=== PATIENT | female | born 1975 | race Two or more races ===

== ENCOUNTER 2021-06-27 09:00 | Outpatient (CLI) | payer OTHER | END 2021-06-27 09:07 | disposition home or self-care (01) | LOC: LAB 09:00 | DX: D64.89 Other specified anemias (principal); N39.0 Urinary tract infection, site not specified; I10 Essential (primary) hypertension; E11.9 Type 2 diabetes mellitus without complications; E05.90 Thyrotoxicosis, unspecified without thyrotoxic crisis or storm; M13.80 Other specified arthritis, unspecified site; Z77.21 Contact with and (suspected) exposure to potentially hazardous body fluids; E55.9 Vitamin D deficiency, unspecified; K92.1 Melena; E78.89 Other lipoprotein metabolism disorders ==

== ENCOUNTER → 2021-07-04 10:10 | Outpatient (CLI) | payer OTHER | END | disposition home or self-care (01) | LOC: LAB 10:10 | DX: D64.89 Other specified anemias (principal); I10 Essential (primary) hypertension; E11.9 Type 2 diabetes mellitus without complications; E05.90 Thyrotoxicosis, unspecified without thyrotoxic crisis or storm; M13.88 Other specified arthritis, other site; E55.9 Vitamin D deficiency, unspecified; K92.1 Melena; R78.89 Finding of other specified substances, not normally found in blood ==

== ENCOUNTER 2021-08-08 10:48 | Outpatient (CLI) | payer OTHER | END 2021-08-08 15:00 | disposition home or self-care (01) | LOC: LAB 10:48 | PROVIDERS: ATTEND General Practice | DX: N39.0 Urinary tract infection, site not specified (principal); R30.0 Dysuria ==

== ENCOUNTER 2022-02-13 09:14 | Outpatient (CLI) | payer OTHER | END 2022-02-13 09:20 | disposition home or self-care (01) | LOC: RAD 09:14 | DX: M99.01 Segmental and somatic dysfunction of cervical region (principal); M99.02 Segmental and somatic dysfunction of thoracic region; M99.03 Segmental and somatic dysfunction of lumbar region; M25.561 Pain in right knee; M25.562 Pain in left knee; M79.671 Pain in right foot ==

== ENCOUNTER 2022-02-20 11:18 | Emergency (ER) | payer OTHER ==
[~2022-02-20] VITALS: Ht 165.1 cm; Wt 66.7 kg
[2022-02-20] MEDS ORDERED: ZYRTEC10 M3 PO (11:38)
== END 2022-02-20 15:49 | disposition home or self-care (01) ==
LOC: ER 11:18
DX: U07.1 COVID-19 (principal); A49.3 Mycoplasma infection, unspecified site

== ENCOUNTER 2022-08-20 09:33 | Outpatient (CLI) | payer OTHER ==
[~2022-08-20 09:33] MED LIST: ZYRTEC10 M3 PO
== END 2022-08-20 23:00 | disposition home or self-care (01) ==
LOC: LAB 09:33
DX: D64.9 Anemia, unspecified (principal); N39.0 Urinary tract infection, site not specified; I10 Essential (primary) hypertension; E11.9 Type 2 diabetes mellitus without complications; E05.90 Thyrotoxicosis, unspecified without thyrotoxic crisis or storm; M13.80 Other specified arthritis, unspecified site; Z77.21 Contact with and (suspected) exposure to potentially hazardous body fluids; K92.1 Melena; E55.9 Vitamin D deficiency, unspecified; E78.2 Mixed hyperlipidemia; Z11.59 Encounter for screening for other viral diseases

== ENCOUNTER 2022-08-21 08:18 | Outpatient (CLI) | payer OTHER | END 2022-08-21 08:19 | disposition home or self-care (01) | LOC: LAB 08:18 | DX: D64.9 Anemia, unspecified (principal); N39.0 Urinary tract infection, site not specified; I10 Essential (primary) hypertension; E11.9 Type 2 diabetes mellitus without complications; E05.90 Thyrotoxicosis, unspecified without thyrotoxic crisis or storm; M13.80 Other specified arthritis, unspecified site; Z77.21 Contact with and (suspected) exposure to potentially hazardous body fluids; K92.1 Melena; E55.9 Vitamin D deficiency, unspecified; E78.2 Mixed hyperlipidemia; Z11.59 Encounter for screening for other viral diseases ==

== ENCOUNTER 2022-10-09 07:54 | Outpatient (CLI) | payer OTHER | END 2022-10-09 07:59 | disposition home or self-care (01) | LOC: LAB 07:54 | DX: N39.0 Urinary tract infection, site not specified (principal) ==

== ENCOUNTER → 2022-12-15 | Outpatient (CLI) | payer OTHER | END | disposition home or self-care (01) | LOC: MAMO-SONO 09:56 | DX: Z12.31 Encounter for screening mammogram for malignant neoplasm of breast (principal) ==

== ENCOUNTER 2023-04-11 11:37 | Outpatient (CLI) | payer OTHER | END 2023-04-11 11:41 | disposition home or self-care (01) | LOC: SONOGRAMA 11:37 | PROVIDERS: ATTEND Obstetrics & Gynecology Maternal & Fetal Medicine | DX: N60.19 Diffuse cystic mastopathy of unspecified breast (principal); N63.0 Unspecified lump in unspecified breast; N60.11 Diffuse cystic mastopathy of right breast ==

== ENCOUNTER 2023-07-02 07:17 | Outpatient (CLI) | payer OTHER ==
[2023-07-02 08:39] LABS: URINE APPEARANCE Clear; URINE BILIRRUBIN Negative (NEGATIVE); URINE BLOOD Negative; URINE COLOR Yellow; URINE GLUCOSE Negative (NEGATIVE); URINE LEUKOCYTE Small; URINE NITRATE Negative; URINE PROTEIN Negative (NEGATIVE); URINE UROBILINOGEN 0.2 E.U./dl
[2023-07-02 08:41] LABS: URINE BACTERIA 3053.8 uL (0.0-1933); URINE EPITHELIAL CELLS 67.8 uL (0.0-38.8); URINE RBC 8.7 uL (0.0-20.8)
[2023-07-02 08:49] LABS: HEMATOCRIT 35.4 % (36.0-45.00); HEMOGLOBIN 12.1 g/dL (12.0-15.00); MEAN CELL VOLUME 96.8 fL (80.00-100.00); MEAN CORPUSCULAR HEMOGLOBIN 33.2 pg (27.00-32.0); MEAN CORPUSCULAR HGB CONC 34.2 g/dl (32.0-36.0); PLATELET COUNT 262 K/uL (150-450); RED BLOOD COUNT 3.66 M/uL (4.00-6.00)
[2023-07-02 08:57] LABS: ERYTHROCYTE SEDIMENTATION RATE 3 mm/hr
[2023-07-02 09:23] LABS: ob NEGATIVE (NEGATIVE)
[2023-07-02 09:54] LABS: ALBUMIN 3.8 gm/dL (3.4-5.0); BILIRUBIN TOTAL 0.4 mg/dL (0.3-1.2); CALCIUM 9.1 mg/dL (8.5-10.1); CHOL HDL RATIO 1.7 (0-5.0); CREATININE SERUM 0.63 mg/dL (0.55-1.02); GFR 101.73; GLOBULINA 2.9 G/DL (2.4-3.5); POTASSIUM 4.11 mEq/L (3.5-5.1); T4 FREE 1.17 NG/ML (0.76-1.46); TOTAL PROTEIN 6.7 gm/dL (6.4-8.2); TSH 3.07 uIU/mL (0.358-3.74)
== END 2023-07-02 07:22 | disposition home or self-care (01) ==
LOC: LAB 07:17
DX: D64.89 Other specified anemias (principal); R79.89 Other specified abnormal findings of blood chemistry; N39.0 Urinary tract infection, site not specified; E55.9 Vitamin D deficiency, unspecified; K92.1 Melena; E78.01 Familial hypercholesterolemia; M13.80 Other specified arthritis, unspecified site; M25.50 Pain in unspecified joint; E03.9 Hypothyroidism, unspecified; A64 Unspecified sexually transmitted disease

== ENCOUNTER 2023-07-10 20:44 | Emergency (ER) | payer OTHER ==
[~2023-07-10] VITALS: Ht 172.7 cm; Wt 72.6 kg
[2023-07-10 21:46] LABS: HEMATOCRIT 36.2 % (36.0-45.00); HEMOGLOBIN 11.8 g/dL (12.0-15.00); MEAN CORPUSCULAR HGB CONC 32.7 g/dl (32.0-36.0); PLATELET COUNT 234 K/uL (150-450); RED CELL DISTRIBUTION WIDTH 13.6 % (11.5-14.5)
[2023-07-10 21:57] LABS: PH,URINE 5.5 (5.0-8.0); URINE APPEARANCE Clear; URINE BILIRRUBIN Small (NEGATIVE); URINE BLOOD Negative; URINE COLOR Dark Yellow; URINE GLUCOSE Negative (NEGATIVE); URINE LEUKOCYTE Trace; URINE NITRATE Positive; URINE PROTEIN Negative (NEGATIVE)
[2023-07-10 22:00] LABS: URINE BACTERIA 1961.5 uL (0.0-1933); URINE EPITHELIAL CELLS 21.6 uL (0.0-38.8); URINE RBC 4.8 uL (0.0-20.8); URINE WBC 15.6 uL (0.0-23.2)
[2023-07-10 22:02] LABS: CALCIUM 9.1 mg/dL (8.5-10.1); CREATININE SERUM 0.72 mg/dL (0.55-1.02); GFR 87.2; POTASSIUM 3.77 mEq/L (3.5-5.1)
[2023-07-11] MEDS ORDERED: CEPHALEXIN500 MG PO (04:01)
[2023-07-11] MEDS ORDERED: PEPCID40 MG PO (04:01)
[2023-07-11] MEDS ORDERED: ONDANSETRON ODT4 MG PO (04:01)
== END 2023-07-11 04:24 ==
LOC: ER 20:44
PROVIDERS: Emergency Medicine
DX: K29.70 Gastritis, unspecified, without bleeding (principal); N39.0 Urinary tract infection, site not specified

== ENCOUNTER 2023-07-23 08:41 | Outpatient (CLI) | payer OTHER ==
[~2023-07-23 08:41] MED LIST changes: +CEPHALEXIN500 MG PO; +ONDANSETRON ODT4 MG PO; +PEPCID40 MG PO
[2023-07-23 10:21] LABS: URINE APPEARANCE Clear; URINE BILIRRUBIN Negative (NEGATIVE); URINE BLOOD Negative; URINE COLOR Yellow; URINE GLUCOSE Negative (NEGATIVE); URINE LEUKOCYTE Negative; URINE NITRATE Negative; URINE PROTEIN Negative (NEGATIVE); URINE UROBILINOGEN 0.2 E.U./dl
[2023-07-23 10:22] LABS: URINE EPITHELIAL CELLS 3.6 uL (0.0-38.8); URINE RBC 3.5 uL (0.0-20.8)
[2023-07-23 11:15] LABS: URINE WBC 1.2 uL (0.0-23.2)
== END 2023-07-23 08:42 | disposition home or self-care (01) ==
LOC: LAB 08:41
PROVIDERS: ATTEND General Practice
DX: N39.0 Urinary tract infection, site not specified (principal)

== ENCOUNTER → 2023-10-22 07:05 | Outpatient (CLI) | payer OTHER ==
[2023-10-22 10:29] LABS: PH,URINE 5.5 (5.0-8.0); URINE APPEARANCE Clear; URINE BILIRRUBIN Negative (NEGATIVE); URINE BLOOD Negative; URINE COLOR Yellow; URINE GLUCOSE Negative (NEGATIVE); URINE LEUKOCYTE Moderate; URINE NITRATE Negative; URINE PROTEIN Negative (NEGATIVE); URINE UROBILINOGEN 0.2 E.U./dl
[2023-10-22 10:30] LABS: HEMATOCRIT 37.7 % (36.0-45.00); HEMOGLOBIN 12.8 g/dL (12.0-15.00); MEAN CELL VOLUME 95.6 fL (80.00-100.00); MEAN CORPUSCULAR HEMOGLOBIN 32.5 pg (27.00-32.0); PLATELET COUNT 235 K/uL (150-450); RED BLOOD COUNT 3.95 M/uL (4.00-6.00); RED CELL DISTRIBUTION WIDTH 13.1 % (11.5-14.5)
[2023-10-22 10:35] LABS: URINE BACTERIA 830.2 uL (0.0-1933); URINE EPITHELIAL CELLS 20.3 uL (0.0-38.8); URINE RBC 6.1 uL (0.0-20.8); URINE WBC 91.1 uL (0.0-23.2)
[2023-10-22 10:41] LABS: ERYTHROCYTE SEDIMENTATION RATE 3 mm/hr
[2023-10-22 11:00] LABS: ALBUMIN 4.2 gm/dL (3.4-5.0); BILIRUBIN TOTAL 0.34 mg/dL (0.3-1.2); CALCIUM 9.7 mg/dL (8.5-10.1); CHOL HDL RATIO 1.7 (0-5.0); CREATININE SERUM 0.71 mg/dL (0.55-1.02); GFR 88.62; POTASSIUM 4.23 mEq/L (3.5-5.1); T4 TOTAL 7.76 UG/DL (4.8-13.9); TOTAL PROTEIN 7.2 gm/dL (6.4-8.2); TSH 2.47 uIU/mL (0.358-3.74)
== END | disposition home or self-care (01) ==
LOC: LAB 07:05
PROVIDERS: ATTEND General Practice
DX: D64.9 Anemia, unspecified (principal); N39.0 Urinary tract infection, site not specified; R79.89 Other specified abnormal findings of blood chemistry; E03.9 Hypothyroidism, unspecified; M13.80 Other specified arthritis, unspecified site; M25.50 Pain in unspecified joint; Z11.4 Encounter for screening for human immunodeficiency virus [HIV]; K92.1 Melena; E78.2 Mixed hyperlipidemia; M54.2 Cervicalgia; M54.6 Pain in thoracic spine

== ENCOUNTER 2024-04-13 12:18 | Outpatient (CLI) | payer OTHER | END 2024-04-13 12:21 | disposition home or self-care (01) | LOC: MAMO-SONO 12:18 | PROVIDERS: ATTEND Obstetrics & Gynecology Maternal & Fetal Medicine | DX: N63 Unspecified lump in breast (principal); Z12.31 Encounter for screening mammogram for malignant neoplasm of breast; N64.4 Mastodynia; N60.11 Diffuse cystic mastopathy of right breast ==

== ENCOUNTER → 2024-04-28 08:39 | Outpatient (CLI) | payer OTHER ==
[2024-04-28 10:32] LABS: URINE APPEARANCE Clear; URINE BILIRRUBIN Negative (NEGATIVE); URINE BLOOD Negative; URINE COLOR Yellow; URINE GLUCOSE Negative (NEGATIVE); URINE KETONE Trace (NEGATIVE); URINE LEUKOCYTE Negative; URINE NITRATE Negative; URINE PROTEIN Negative (NEGATIVE); URINE UROBILINOGEN 0.2 E.U./dl
[2024-04-28 10:33] LABS: URINE BACTERIA 209.1 uL (0.0-1933); URINE EPITHELIAL CELLS 8.9 uL (0.0-38.8); URINE RBC 2.5 uL (0.0-20.8)
[2024-04-28 11:03] LABS: HEMATOCRIT 35.8 % (36.0-45.00); HEMOGLOBIN 12.4 g/dL (12.0-15.00); MEAN CELL VOLUME 94.6 fL (80.00-100.00); MEAN CORPUSCULAR HEMOGLOBIN 32.8 pg (27.00-32.0); MEAN CORPUSCULAR HGB CONC 34.7 g/dl (32.0-36.0); PLATELET COUNT 240 K/uL (150-450); RED BLOOD COUNT 3.78 M/uL (4.00-6.00); RED CELL DISTRIBUTION WIDTH 13.3 % (11.5-14.5)
[2024-04-28 11:12] LABS: BILIRUBIN TOTAL 0.56 mg/dL (0.3-1.2); CALCIUM 9.7 mg/dL (8.5-10.1); CHOL HDL RATIO 2.2 (0-5.0); CREATININE SERUM 0.53 mg/dL (0.55-1.02); GFR 123.65; GLOBULINA 2.8 G/DL (2.4-3.5); POTASSIUM 4.58 mEq/L (3.5-5.1); TOTAL PROTEIN 6.8 gm/dL (6.4-8.2); TSH 2.05 uIU/mL (0.358-3.74)
[2024-04-28 15:37] LABS: ob NEGATIVE (NEGATIVE)
[2024-05-01 09:08] LABS: FOLLICLE STIMULATING HORMONE 42.6 mIU/mL (.)
[2024-05-01 13:06] LABS: LEUTEINIZING HORMONE 64.8 mIU/mL (.)
== END | disposition home or self-care (01) ==
LOC: LAB 08:39
PROVIDERS: ATTEND Obstetrics & Gynecology Maternal & Fetal Medicine
DX: E03.8 Other specified hypothyroidism (principal); D63.8 Anemia in other chronic diseases classified elsewhere; N30.90 Cystitis, unspecified without hematuria; E78.00 Pure hypercholesterolemia, unspecified; R73.9 Hyperglycemia, unspecified; K92.1 Melena; Z12.11 Encounter for screening for malignant neoplasm of colon; E55.9 Vitamin D deficiency, unspecified; K91.2 Postsurgical malabsorption, not elsewhere classified

== ENCOUNTER → 2024-12-01 | Emergency (ER) | payer OTHER ==
[~2024-12-01] VITALS: Ht 165.1 cm; Wt 64.0 kg
[~2024-12-01] MED LIST changes: +CEFAZOLIN SODIUM 1,000 MG VIAL IM ONE; +DICLOFENAC POTA50 MG PO; +MONTELUKAST SOD10 MG PO
[2024-12-01 12:04] LABS: HEMATOCRIT 38.4 % (36.0-45.00); MEAN CELL VOLUME 96.7 fL (80.00-100.00); MEAN CORPUSCULAR HEMOGLOBIN 32.8 pg (27.00-32.0); MEAN CORPUSCULAR HGB CONC 33.9 g/dl (32.0-36.0); PLATELET COUNT 205 K/uL (150-450); RED BLOOD COUNT 3.97 M/uL (4.00-6.00); RED CELL DISTRIBUTION WIDTH 13.2 % (11.5-14.5)
== END | disposition home or self-care (01) ==
LOC: ER 08:13
PROVIDERS: General Practice
DX: B34.9 Viral infection, unspecified (principal); R53.81 Other malaise

== ENCOUNTER 2025-04-17 07:36 | Outpatient (CLI) | payer OTHER ==
[~2025-04-17 07:36] MED LIST changes: -CEFAZOLIN SODIUM 1,000 MG VIAL IM ONE
[2025-04-17 08:23] LABS: BASO % 1.0 % (0.1-1.2); EOS # 0.16 (0.04-0.54); EOS % 5.3 % (0.7-7.0); LYMPH # 1.33 (1.18-3.74); LYMPH % 43.8 % (19.3-53.1); MEAN PLATELET VOLUME 10.70 fl (9.4-12.4); MONO # 0.23 (0.24-0.82); MONO % 7.6 % (4.7-12.5); NEUT # 1.28 (1.56-6.13); NEUT % 42.0 % (34.0-71.1); RED CELL DISTRIBUTION WIDTH 12.6 % (11.6-14.4)
[2025-04-17 09:00] LABS: URINE APPEARANCE Clear; URINE BILIRRUBIN Negative (NEGATIVE); URINE BLOOD Negative; URINE COLOR Yellow; URINE GLUCOSE Negative (NEGATIVE); URINE KETONE Negative (NEGATIVE); URINE LEUKOCYTE Small; URINE NITRATE Negative; URINE PROTEIN Negative (NEGATIVE); URINE UROBILINOGEN 0.2 E.U./dl
[2025-04-17 09:07] LABS: ALT/SGPT 19.0 U/L (12-78); AST/SGOT 10.0 U/L (15-37); BILIRUBIN TOTAL 0.47 mg/dL (0.3-1.2); BUN CREA RATIO 20.0 (7.0-25.0); CHOL HDL RATIO 2.1 (0-5.0); CREATININE SERUM 0.66 mg/dL (0.55-1.02); GFR 95.59; GLOBULINA 2.8 G/DL (2.4-3.5); GLUCOSE FASTING 86.0 mg/dL (65-100); HDL 80.0 mg/dl (40-60); LDL 74.0 mg/dl (0-130); OSMOLALITY SERUM 283.0 MOSM/KG (275-295); TSH 2.93 uIU/mL (0.358-3.74); VLDL 9.0 (0-39)
[2025-04-17 09:34] LABS: URINE BACTERIA 146.3 uL (0.0-1933); URINE CAST 0.00 uL (0.0-1.40); URINE EPITHELIAL CELLS 10.4 uL (0.0-38.8); URINE RBC 4.9 uL (0.0-20.8); URINE WBC 7.0 uL (0.0-23.2)
[2025-04-18 09:08] LABS: LEUTEINIZING HORMONE 59.4 mIU/mL (.)
== END 2025-04-17 07:38 | disposition home or self-care (01) ==
LOC: LAB 07:36
PROVIDERS: ATTEND Obstetrics & Gynecology Maternal & Fetal Medicine
DX: N91.2 Amenorrhea, unspecified (principal); N92.1 Excessive and frequent menstruation with irregular cycle; E03.9 Hypothyroidism, unspecified; E03.8 Other specified hypothyroidism; D63.8 Anemia in other chronic diseases classified elsewhere; N30.90 Cystitis, unspecified without hematuria; E78.00 Pure hypercholesterolemia, unspecified; R73.9 Hyperglycemia, unspecified; K92.1 Melena; Z12.11 Encounter for screening for malignant neoplasm of colon; E55.9 Vitamin D deficiency, unspecified

== ENCOUNTER 2025-04-17 08:09 | Outpatient (CLI) | payer OTHER | END 2025-04-17 08:25 | disposition home or self-care (01) | LOC: MAMO-SONO 08:09 | PROVIDERS: ATTEND Obstetrics & Gynecology Maternal & Fetal Medicine | DX: N63 Unspecified lump in breast (principal); Z12.31 Encounter for screening mammogram for malignant neoplasm of breast; N64.4 Mastodynia; N60.11 Diffuse cystic mastopathy of right breast ==

== ENCOUNTER 2025-05-25 08:02 | Outpatient (CLI) | payer OTHER ==
[2025-05-25 09:51] LABS: URINE APPEARANCE Clear; URINE BILIRRUBIN Negative (NEGATIVE); URINE BLOOD Negative; URINE COLOR Yellow; URINE GLUCOSE Negative (NEGATIVE); URINE KETONE Negative (NEGATIVE); URINE LEUKOCYTE Small; URINE NITRATE Negative; URINE PROTEIN Negative (NEGATIVE); URINE UROBILINOGEN 0.2 E.U./dl
[2025-05-25 09:53] LABS: URINE BACTERIA 692.4 uL (0.0-1933); URINE EPITHELIAL CELLS 23.5 uL (0.0-38.8); URINE RBC 8.5 uL (0.0-20.8); URINE WBC 9.6 uL (0.0-23.2)
[2025-05-25 09:58] LABS: URINE CAST 0.00 uL (0.0-1.40)
[2025-05-25 10:29] LABS: BASO % 0.4 % (0.1-1.2); EOS # 0.14 (0.04-0.54); EOS % 2.9 % (0.7-7.0); LYMPH # 0.62 (1.18-3.74); LYMPH % 12.9 % (19.3-53.1); MEAN PLATELET VOLUME 10.60 fl (9.4-12.4); MONO # 0.30 (0.24-0.82); MONO % 6.3 % (4.7-12.5); NEUT # 3.70 (1.56-6.13); NEUT % 77.1 % (34.0-71.1); RED CELL DISTRIBUTION WIDTH 13.2 % (11.6-14.4)
[2025-05-25 11:26] LABS: ALT/SGPT 22.0 U/L (12-78); AST/SGOT 14.0 U/L (15-37); BILIRUBIN TOTAL 0.57 mg/dL (0.3-1.2); BUN CREA RATIO 31.0 (7.0-25.0); CHOL HDL RATIO 2.0 (0-5.0); CREATININE SERUM 0.58 mg/dL (0.55-1.02); GFR 110.96; GLOBULINA 3.2 G/DL (2.4-3.5); GLUCOSE FASTING 73.0 mg/dL (65-100); HDL 86.0 mg/dl (40-60); LDL 78.0 mg/dl (0-130); OSMOLALITY SERUM 284.0 MOSM/KG (275-295); T4 TOTAL 8.86 UG/DL (4.8-13.9); TSH 3.22 uIU/mL (0.358-3.74); VLDL 6.0 (0-39)
[2025-05-25 11:36] LABS: ERYTHROCYTE SEDIMENTATION RATE 12 mm/hr (0-20)
[2025-05-25 12:24] LABS: ob NEGATIVE (NEGATIVE)
[2025-05-26 11:53] LABS: T3 TOTAL 1.04 ng/ml (0.846-2.02); VITAMIN D3 25 HYDROXY 67.59 ng/ml (30-120)
== END 2025-05-25 08:08 | disposition home or self-care (01) ==
LOC: LAB 08:02
DX: D64.9 Anemia, unspecified (principal); N39.0 Urinary tract infection, site not specified; R79.89 Other specified abnormal findings of blood chemistry; M06.4 Inflammatory polyarthropathy; M13.80 Other specified arthritis, unspecified site; M25.50 Pain in unspecified joint; Z11.4 Encounter for screening for human immunodeficiency virus [HIV]; Z12.11 Encounter for screening for malignant neoplasm of colon; E78.2 Mixed hyperlipidemia; Z11.59 Encounter for screening for other viral diseases; E55.9 Vitamin D deficiency, unspecified; E03.8 Other specified hypothyroidism